=== PATIENT | female | born 1965 | race Caucasian/White ===

== ENCOUNTER 2017-02-26 08:22 | Outpatient (CLI) | payer BC ==
[2017-02-26 10:02] LABS: #Basophils 0.1 thou/uL (0.0-0.2); #Eosinphils 0.1 thou/uL (0.0-0.7); #Lymphocytes 2.2 thou/uL (1.20-3.40); #Monocytes 0.4 thou/uL (0.11-0.59); #Neutrophils 4.9 thou/uL (1.40-6.50); %Basophils 1.5 % (0.0-1.0); %Eosinophils 1.8 % (0.0-10.0); %Lymphocytes 28.8 % (21.0-51.0); %Monocytes 5.3 % (0.0-10.0); Mean Platelet Volume 7.5 fL (7.4-10.4); Red Blood Cell (RBC) Count 4.68 mill/uL (4.20-5.40); White Blood Cell (WBC) Count 7.8 thou/uL (4.8-10.8)
[2017-02-26 10:09] LABS: PTT 28.6 SEC (22.9-36.1)
[2017-02-26 10:24] LABS: Anion Gap 15 mmol/L (10-20); BUN (Urea Nitrogen) 13 mg/dL (9.8-20.1); Calc. Creatinine Clearance 0 mL/min (70-130); Calcium 10.1 mg/dL (7.8-10.44); Carbon Dioxide 26 mmol/L (22-29); Chloride 104 mmol/L (98-107); Estimated GFR-MDRD 78
--- NOTE | 2017-02-26 22:07 | EKG ---
Test Reason : Blood Pressure : / mmHG Vent. Rate : 068 BPM Atrial Rate : 068 BPM P-R Int : 138 ms QRS Dur : 082 ms QT Int : 404 ms P-R-T Axes : 067 062 069 degrees QTc Int : 429 ms Normal sinus rhythm Minimal voltage criteria for LVH, may be normal variant Borderline ECG When compared with ECG of 25-OCT-2016 09:32, T wave amplitude has decreased in Anterior leads Confirmed by TSERING WINKLER, SAnthony ([id number]) on 02/26/2017 10:07:19 PM Referred By: MAGO Confirmed By:DR. Maria E CAGLE MD
== END 2017-02-26 08:23 | disposition home or self-care (01) ==
LOC: LABBT 08:22
PROVIDERS: ATTEND Surgery
DX: Z01.818 Encounter for other preprocedural examination (principal); M54.12 Radiculopathy, cervical region; M48.02 Spinal stenosis, cervical region
CPT/HCPCS: 80048; 85025; 85610; 85730; 93005; 93010

== ENCOUNTER 2017-03-01 06:05 | Day surgery (SDC) | payer BC ==
[2017-03-01] MEDS ORDERED: Sodium Chloride 0.9% 10 ML ONE (06:24)
[2017-03-01] MEDS ORDERED: Bacitracin Zinc Ointment 30 gm TUBE ONE (06:25)
[2017-03-01] MEDS ORDERED: Thrombin 5000 UNITS/5 ML VIAL ONE (06:25)
[2017-03-01] MEDS ORDERED: Fentanyl 100 MCG/2 ML VIAL ONE ×2 (06:39→10:39)
[2017-03-01] MEDS ORDERED: Scopolamine 1.5 mg/72 hour Patch ONE (07:06)
[2017-03-01] MEDS ORDERED: Midazolam HCl 2 mg/2 ml Vial ONE (07:06)
[2017-03-01] MEDS ORDERED: Propofol 200 MG/20 ML VIAL ONE (07:43)
[2017-03-01] MEDS ORDERED: Ondansetron HCl/PF 4 MG/2 ML Vial ONE (07:43)
[2017-03-01] MEDS ORDERED: Glycopyrrolate 0.2 MG/ML 5 ML SYRINGE ONE (07:43)
[2017-03-01] MEDS ORDERED: Dexamethasone 20 MG/5 ML VIAL ONE (07:43)
[2017-03-01] MEDS ORDERED: Lidocaine 1% PF 5 ML VIAL ONE (07:43)
[2017-03-01] MEDS ORDERED: Acetaminophen/Codeine 30-300mg Tablet PO PRN (10:03)
[2017-03-01] MEDS ORDERED: Acetaminophen 325 MG TAB PO PRN (10:03)
[2017-03-01] MEDS ORDERED: Mag-Al 1200 mg/1200 mg/30 ML UDCUP PO PRN (10:03)
[2017-03-01] MEDS ORDERED: Bisacodyl 10 MG SUPP PR PRN (10:03)
[2017-03-01] MEDS ORDERED: Promethazine HCl 25 MG/ML VIAL IM PRN ×2 (10:03→10:11)
[2017-03-01] MEDS ORDERED: traMADol HCl 50 MG TAB PO PRN (10:03)
[2017-03-01] MEDS ORDERED: Milk Of Magnesia 30 ML UDCUP PO PRN (10:03)
[2017-03-01] MEDS ORDERED: Fleet Enema 133 ML BOT PR PRN (10:03)
[2017-03-01] MEDS ORDERED: Morphine Sulfate 2 MG/ML SYRINGE SLOW IVP PRN (10:11)
[2017-03-01] MEDS ORDERED: Promethazine HCl 25 MG/ML VIAL SLOW IVP PRN (10:11)
[2017-03-01] MEDS ORDERED: HYDROmorphone 2 MG/ML VIAL SLOW IVP PRN (10:11)
[2017-03-01] MEDS ORDERED: Ondansetron HCl/PF 4 MG/2 ML Vial IVP PRN ×2 (10:11→13:50)
[2017-03-01] MEDS ORDERED: Estradiol 0.01% Vaginal Cream 42.5 gm Tube VAG SCH (10:15)
[2017-03-01] MEDS ORDERED: Morphine 4 MG/ML VIAL SLOW IVP PRN (12:03)
[2017-03-01] MEDS: tiZANidine HCl 4 MG TAB PO PRN ×2 (12:07→18:34)
[2017-03-01] MEDS: Sodium Chloride 0.9% 1,000 ML IV SCH (13:49)
[2017-03-01] MEDS: HYDROcodone/Acetaminophen 7.5/325 mg Tablet PO PRN ×2 (14:47→20:38)
--- NOTE | 2017-03-01 15:45 | OP ---
LOCATION: OR 11 WOUND TYPE: Type 1 wound. SURGEON: Luís Kumar M.D. WAREHOUSE INCENTIVE SELECTOR: Sharath Pimentel PA-C. PREPROCEDURE DIAGNOSES: Cervical spondylosis with stenosis resulting in neck and arm pain. POSTPROCEDURE DIAGNOSES: Cervical spondylosis with stenosis resulting in neck and arm pain. PROCEDURES: 1. C4-C5 anterior diskectomy for decompression of the spinal cord and nerve roots. 2. Placement of interbody spacer, C4-C5 packed with use of autograft and allograft. 3. Use of operative microscope for microdissection. 4. C4-C5 fusion. 5. Anterior cervical plate and screw fixation C4-C5. DESCRIPTION OF PROCEDURE: After informed consent was obtained from the patient, the patient brought to OR 11. Proper patient pause and identification was carried out. She was placed under excellent e ndotracheal anesthesia and positioned supine on the operating room table. Cervical spine was kept in neutral position. A right anterior oblique serene was made that would allow for approach to the C4-C5 segment. This area was sterilely cleansed, prepared, and draped. Proper patient pause and identifi cation was carried out. The wound was then opened with a combination of sharp, monopolar and blunt d issection and the C4-C5 segment. We proceeded lateral to the larynx and pharynx and medial to the ri ght carotid sheath. We identified the prevertebral layer of deep cervical fascia and the longus lisa i muscles and they were swept laterally and retracted. Localization film confirmed our area of inter est. We then placed distraction at C4 and C5 and the microscope was brought into the field for micro dissection. A C4-C5 diskectomy was performed and the endplates prepared. Interbody spacer of approp riate dimension was placed after satisfactory decompression of the common dural tube and the C5 nerve roots bilaterally. We then were satisfied with our interbody spacer placement, we then turned our a ttention to removal of the microscope and anterior cervical plate and screw fixation C4-C5 occurred. Copious irrigation occurred throughout and hemostasis was maximized and final tightening occurred. The wound was then closed in anatomic layers over a drain. The patient then emerged from anesthesia.
[2017-03-01] MEDS ORDERED: Vancomycin HCl 1 GM in Premix Bag 1 BAG IVPB SCH (21:00)
[2017-03-01] MEDS ORDERED: diphenhydrAMINE 50 MG CAP PO PRN (22:01)
[2017-03-02] MEDS: Sodium Chloride 0.9% 1,000 ML IV SCH (00:54)
[2017-03-02 04:30] VITALS: TEMP 98
[2017-03-02] MEDS: tiZANidine HCl 4 MG TAB PO PRN (07:47)
[2017-03-02 08:41] VITALS: BP 94/62
[2017-03-02] MEDS ORDERED: Levothyroxine Sodium 125 MCG TAB PO SCH (09:00)
--- NOTE | 2017-03-02 18:49 | PRG ---
DATE OF SERVICE: 03/02/2017 Ms. Yo is doing well postoperative day #1, C4-C5 ACDF. She has no arm pain. As expected, she h as incisional postoperative pain. She is tolerating orals with good strength throughout her lower ex tremities. Her drain output has been minimal. We went over intraoperative and postoperative issues. We will dismiss her.
== END 2017-03-02 09:17 | disposition home or self-care (01) ==
LOC: SDC 06:05 → SURG A 10:03 → SDC 03-02 09:17
PROVIDERS: ATTEND Surgery
PROC: 0RG1070 Fusion of Cervical Vertebral Joint with Autologous Tissue Substitute, Anterior Approach, Anterior Column, Open Approach (ICD-10-PCS; principal; 2017-03-02)
DX: M47.892 Other spondylosis, cervical region (principal); M48.02 Spinal stenosis, cervical region; M54.12 Radiculopathy, cervical region; Z88.2 Allergy status to sulfonamides; Z88.0 Allergy status to penicillin; Z88.1 Allergy status to other antibiotic agents
CPT/HCPCS: 76001; A4216; C1713; J1100; J2001; J2250; J2270; J2405; J2704; J3010; J3370; J3490

== ENCOUNTER 2017-04-23 08:07 | Outpatient (CLI) | payer BC ==
--- NOTE | 2017-04-23 08:44 | RAD ---
THREE VIEWS CERVICAL SPINE: Date: 04-23-17 History: Cervical radiculopathy. Patient is post-surgery 6 weeks ago. Comparison: 10-09-16 FINDINGS: There has been interval post-surgical changes at the C5-6 level related to anterior cervical fusion. An anterior plate and screws transfix this level with intradiscal prosthesis in place. No hardware co mplication is present. Mild degenerative changes are seen at the C6-7 level with loss of intervertebr al disc height and osteophyte formation. C1 to the cervicothoracic junction is seen on the lateral vi ew. No fracture or new level of subluxation is present. The prevertebral soft tissues are within norm al limits. Degenerative changes are noted in the mid cervical spine. IMPRESSION: 1. Post-surgical changes related to interval anterior cervical fusion of the C4-5 level. 2. Degenerative changes in the cervical spine similar to prior study. POS: MERVAT
== END 2017-04-23 08:08 | disposition home or self-care (01) ==
LOC: TBSIIMAG 08:07
PROVIDERS: ATTEND Surgery
DX: M47.22 Other spondylosis with radiculopathy, cervical region (principal); Z98.890 Other specified postprocedural states; Z98.1 Arthrodesis status
CPT/HCPCS: 72040

== ENCOUNTER 2017-10-22 07:51 | Outpatient (CLI) | payer BC | END 2017-10-22 07:52 | disposition home or self-care (01) | LOC: BICMAMMO 07:51 | PROVIDERS: ATTEND Internal Medicine | DX: Z12.31 Encounter for screening mammogram for malignant neoplasm of breast (principal); M81.0 Age-related osteoporosis without current pathological fracture; M85.852 Other specified disorders of bone density and structure, left thigh; Z85.528 Personal history of other malignant neoplasm of kidney; Z85.118 Personal history of other malignant neoplasm of bronchus and lung; Z80.3 Family history of malignant neoplasm of breast | CPT/HCPCS: 77063; 77067; 77080 ==

== ENCOUNTER 2018-05-08 07:38 | Outpatient (CLI) | payer BC ==
[2018-05-08] MEDS ORDERED: Gadobenate Dimeglumine 529 MG/1 ML (20ML VIAL) ONE (10:10)
--- NOTE | 2018-05-08 11:46 | MRI ---
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 Patient has family history of breas t cancer, mother at age 58 and history of lung cancer at age 8 and kidney cancer at age 4. FINDINGS: Correlation is made with the mammogram of 10/22/17. No evidence of mass or abnormal postcontrast enhancement is seen. No axillary or internal mammary lym phadenopathy is identified. IMPRESSION: BIRADS Category 1 - Negative. Mammographic and MR screening based on risk factors is recommended. POS: MERVAT
== END 2018-05-08 07:39 | disposition home or self-care (01) ==
LOC: BICMRI 07:38
PROVIDERS: ATTEND Internal Medicine
DX: Z15.09 Genetic susceptibility to other malignant neoplasm (principal)
CPT/HCPCS: 82565; A9579; C8908